=== PATIENT | male | born 1955 | race Caucasian/White ===

== ENCOUNTER 2022-05-05 21:51 | Emergency (ER) | payer BC ==
[2022-05-05 21:58] VITALS: BP 144/99; PULSE 96; RESP 18; TEMP 98.9; BMI 30.1
[2022-05-05] MEDS ORDERED: PANTOPRAZOLE 40 MG TABLET PO ONE ×2 (22:07→22:08)
== END 2022-05-05 22:35 | disposition home or self-care (01) ==
LOC: FER 21:51
DX: U07.1 COVID-19 (principal); R06.6 Hiccough
CPT/HCPCS: 0241U-QW; 99283-25